=== PATIENT | female | born 1980 | race Caucasian/White ===

== ENCOUNTER 2016-10-07 12:36 | Emergency (ER) | payer OTHER ==
[~2016-10-07] VITALS: Ht 167.6 cm; Wt 81.5 kg
[~2016-10-07 12:36] MED LIST: ZOLO20CO PO
[2016-10-07 12:48] VITALS: BP 113/81; PULSE 66; RESP 20; TEMP 98.4
[2016-10-07] MEDS ORDERED: BIRTH CONTROL (13:55)
[2016-10-07] MEDS ORDERED: SERT-129 PO (13:55)
--- NOTE | 2016-10-07 14:35 | PD ---
HPI Chief Complaint: Injury Time Seen by Provider: 14:23 Travel History International Travel<30 days: No Contact w/Intl Traveler<30days: No Traveled to known affect area: No History of Present Illness HPI The patient is a 36-year-old female who presents to the emergency department for left foot pain. The patient states she was at the [employer] earlier today, running after her child, when she fell and heard a "pop" from her left foot. Patient complains of pain over the fifth metatarsal of the left foot. She does have a history of previous pain over the affected area, however, states she changed her shoes at that time with good resolution of her symptoms. The pain is located over the fifth metatarsal, radiates to the back of left foot, worse with weightbearing, slightly alleviated at rest. She denies any pain over the medial or lateral aspect of the left ankle. She denies any radiation of pain to the left knee. She denies any obvious swelling or bruising over the affected area. PFSH Past Medical History Depression: Yes Immunizations Current: Yes ?: Not LMP: 2 WEEKS AGO Past Surgical History Section: Yes Other Surgery: Yes (SEPTOPLASTY) Social History Alcohol Use: No Tobacco Use: Yes Substance Use: No Allergies-Medications (Allergen,Severity, Reaction): Coded Allergies: Amoxicillin (Verified Allergy, Severe, HIVES, 10/07/16) Ceclor (Verified Allergy, Severe, Nausea/Vomiting, 10/07/16) Penicillin (Verified Allergy, Severe, HIVES, 10/07/16) Reported Meds & Prescriptions Reported Meds & Active Scripts Active Reported Sertraline (Sertraline HCl) 100 Mg Tab 100 Mg PO DAILY [ Control ] Review of Systems Gastrointestinal: No: Nausea, Vomiting Musculoskeletal: Positive: Limited ROM, Pain Skin: No Other Neurologic: No: Paresthesia, Sensory Disturbance Physical Exam Narrative GENERAL: Awake, alert, pleasant 36-year-old female who appears her stated age and is in no acute respiratory distress. SKIN: Warm and dry. HEAD: Atraumatic. Normocephalic. EYES: No injection or drainage. ENT: No nasal bleeding or discharge. Mucous membranes pink and moist. NECK: Trachea midline. No JVD. MUSCULOSKELETAL: Pain over the fifth metatarsal of the left foot, especially proximal one half. No tenderness over the lateral or medial malleus. No tenderness over the Achilles tendon. Positive dorsalis pedal pulses bilateral. Patient is able plantarflex and dorsiflex the left, limited range of motion secondary to pain. Patient is able fully flex the left knee with no tenderness over the proximal fibula or tibia. NEUROLOGICAL: Awake and alert. No obvious cranial nerve deficits. Motor grossly within normal limits. Normal speech. PSYCHIATRIC: Appropriate mood and affect; insight and judgment normal. Data Data Last Documented VS Vital Signs Date Time Temp Pulse Resp B/P Pulse Ox O2 Delivery O2 Flow Rate FiO2 10/07/16 12:48 98.4 66 20 113/81 Orders Foot, Complete ([id number]) (10/07/16 ) [facility] Medical Decision Making Medical Screen Exam Complete: Yes Emergency Medical Condition: Yes Medical Record Reviewed: Yes Interpretation(s) X-ray of the left foot reveals fifth metatarsal fracture Differential Diagnosis Differential diagnosis includes fracture, contusion, hematoma, dislocation, sprain, strain. Narrative Course X-ray of the left foot was obtained. X-ray left foot reveals fifth metatarsal fracture. The patient was placed in a short posterior leg splint and fitted for crutches. The patient will be referred to podiatry. She is advised to wear the splint, crutches, and pain medications as directed. Diagnosis Primary Impression: Metatarsal fracture Qualified Code: S92.355A - Closed nondisplaced fracture of fifth metatarsal bone of left foot, initial encounter Referrals: Adam Haywood DPMisty call for appointment Patient Instructions: General Instructions Additional Instructions: Medications as directed. Follow-up with podiatry. Splint and crutches as directed. Elevate and ice. Med/Other Pt SpecificInfo: Prescription(s) given Scripts Hydrocodone-Acetaminophen ([place])5-325 mg Tab1 Tab PO Q6H PRN (PAIN) #20 TAB Ref 0 Prov:Karthik Chou MD 10/07/16 Ibuprofen 600 Mg [id number] Mg PO Q6H PRN (Pain/Inflammation) #20 TAB Ref 0 Prov:Karthik Chou MD 10/07/16 Disposition: 01 DISCHARGE HOME Condition: Stable Karthik Chou MD Oct 07, 2016 14:35
--- NOTE | 2016-10-07 14:59 | RADHPO ---
EXAM DATE/TIME: 10/07/2016 14:39 [facility] COMPARISON: No previous studies available for comparison. INDICATIONS : Left foot pain after jumping at [employer] [place]. MEDICAL HISTORY : None. SURGICAL HISTORY : None. ENCOUNTER: Initial ACUITY: 1 day PAIN SCORE: 7/10 LOCATION: Left lateral foot FINDINGS: Transverse nondisplaced fracture of the fifth metatarsal base. No other fractures are seen. Normal baldo ne density. CONCLUSION: Fifth metatarsal fracture. Fortino Bhakta MD on October 07, 2016 at 14:56 Board Certified Radiologist. This report was verified electronically.
[2016-10-07] MEDS ORDERED: NORC5TAB PO (15:03)
[2016-10-07] MEDS ORDERED: IBUP-232 PO (15:03)
== END 2016-10-07 15:23 | disposition home or self-care (01) ==
LOC: PHED 12:36 → PHEFT 15:23
DX: S92.355A Nondisplaced fracture of fifth metatarsal bone, left foot, initial encounter for closed fracture (principal); W19.XXXA Unspecified fall, initial encounter; Y93.02 Activity, running; Y92.39 Other specified sports and athletic area as the place of occurrence of the external cause
CPT/HCPCS: 29515; 73630; 99283; E0113